=== PATIENT | female | born 1955 | race Caucasian/White ===

== ENCOUNTER 2016-12-09 08:26 | Inpatient (IN) | payer OTHER ==
[~2016-12-09] VITALS: Ht 162.6 cm; Wt 58.5 kg
[2016-12-09 09:11] LABS: BASOPHIL % 0.4 % (0-2); PLATELET COUNT 172 x10^3mcL (130-400)
[2016-12-09 09:12] LABS: RED CELL DISTRIBUTION WIDTH 14.8 % (11.5-14.5)
[2016-12-09 09:33] LABS: BILIRUBIN TOTAL 0.87 mg/dL (0.20-1.00); CALCIUM 9.6 mg/dL (8.5-10.1); CARBON DIOXIDE 20.4 mmol/L (21-32); CREATININE SERUM 1.4 mg/dL (0.6-1.0); POTASSIUM SERUM 3.4 mmol/L (3.5-5.1); T4(THYROXINE) 7.5 ug/dL (4.7-13.3); TOTAL PROTEIN, SERUM 7.6 g/dL (6.4-8.2)
[2016-12-09 10:48] LABS: microscopic required? YES; urine erythrocyte NEGATIVE (NEGATIVE)
[2016-12-09 11:20] LABS: AMPHETAMINE QUAL UR NONE DETECTED (NEG <=1000)
[2016-12-09] MEDS ORDERED: METFORMIN HYDR500 M1 (11:41)
[2016-12-09] MEDS ORDERED: JANUVIA100 M1 PO (11:41)
[2016-12-09 12:24] LABS: PHOSPHOROUS 3.9 mg/dL (2.5-4.9)
[2016-12-09 12:26] LABS: T3 TOTAL 0.73 ng/mL
[2016-12-09 12:29] LABS: CHOLESTEROL/HDL RATIO 2.9; MAGNESIUM 0.9 mg/dL (1.8-2.4)
[2016-12-09 12:48] VITALS: BP 139/63
[2016-12-09 12:58] LABS: FREE T4 1.28 ng/dL (0.76-1.46); T4(THYROXINE) 7.6 ug/dL (4.7-13.3)
[2016-12-09 13:01] VITALS: BP 139/63
[2016-12-09] MEDS ORDERED: GLUCOPHAGE1000 MG PO (16:02)
[2016-12-09] MEDS ORDERED: OXYBUTYNIN CHLOR5 MG PO (16:02)
[2016-12-09] MEDS ORDERED: TOPROL XL100 MG PO (16:04)
[2016-12-09] MEDS ORDERED: LEXAPRO10 MG PO (16:04)
[2016-12-09] MEDS ORDERED: COQ-10100 MG PO (16:05)
[2016-12-09] MEDS ORDERED: CALCIUM WITH V1 EACH PO (16:05)
[2016-12-09] MEDS ORDERED: AMARYL4 MG PO (16:05)
[2016-12-09] MEDS ORDERED: LIPI20 PO (16:05)
[2016-12-09 16:40] VITALS: BP 156/73
[2016-12-09 21:07] VITALS: BP 130/67
[2016-12-10 05:06] VITALS: BP 126/63
[2016-12-10 06:34] LABS: BASOPHIL % 0.1 % (0-2)
[2016-12-10 06:45] LABS: PLATELET COUNT 124 x10^3mcL (130-400); RED CELL DISTRIBUTION WIDTH 14.7 % (11.5-14.5)
[2016-12-10 06:59] LABS: CALCIUM 8.5 mg/dL (8.5-10.1); CARBON DIOXIDE 24.2 mmol/L (21-32); CHLORIDE SERUM 104 mmol/L (98-107); CREATININE SERUM 0.9 mg/dL (0.6-1.0); GFR1 > 60 mL/min; GLUCOSE SERUM 293 mg/dL (74-106); MAGNESIUM 1.7 mg/dL (1.8-2.4); PHOSPHOROUS 2.7 mg/dL (2.5-4.9); SODIUM SERUM 138 mmol/L (136-145)
[2016-12-10 08:15] VITALS: BP 115/59
[2016-12-10 09:27] VITALS: BP 115/59
[2016-12-10 13:14] VITALS: BP 125/67
[2016-12-10 16:56] LABS: CALCIUM 8.7 mg/dL (8.5-10.1); CARBON DIOXIDE 25.5 mmol/L (21-32); CHLORIDE SERUM 106 mmol/L (98-107); CREATININE SERUM 0.9 mg/dL (0.6-1.0); GFR1 > 60 mL/min; GLUCOSE SERUM 203 mg/dL (74-106); POTASSIUM SERUM 3.4 mmol/L (3.5-5.1); SODIUM SERUM 140 mmol/L (136-145)
[2016-12-10 17:17] VITALS: BP 125/82
[2016-12-10 22:06] VITALS: BP 141/68
[2016-12-11 05:37] LABS: ALBUMIN 3.5 g/dL (3.4-5.0); CALCIUM 9.1 mg/dL (8.5-10.1); CARBON DIOXIDE 22.1 mmol/L (21-32); CHLORIDE SERUM 100 mmol/L (98-107); CREATININE SERUM 0.9 mg/dL (0.6-1.0); GFR1 > 60 mL/min; GLUCOSE SERUM 326 mg/dL (74-106); MAGNESIUM 1.9 mg/dL (1.8-2.4); PHOSPHOROUS 2.8 mg/dL (2.5-4.9); POTASSIUM SERUM 3.7 mmol/L (3.5-5.1); SODIUM SERUM 135 mmol/L (136-145)
[2016-12-11 05:45] LABS: BASOPHIL % 0.2 % (0-2); RED CELL DISTRIBUTION WIDTH 14.3 % (11.5-14.5)
[2016-12-11 05:50] LABS: PLATELET COUNT 105 x10^3mcL (130-400)
[2016-12-11 05:55] VITALS: BP 186/79
[2016-12-11 09:22] VITALS: BP 184/92
[2016-12-11 16:31] VITALS: BP 107/70
[2016-12-11 21:06] VITALS: BP 106/58
[2016-12-12 04:45] VITALS: BP 120/60
[2016-12-12 06:18] LABS: BASOPHIL % 0.3 % (0-2); RED CELL DISTRIBUTION WIDTH 14.4 % (11.5-14.5)
[2016-12-12 06:26] LABS: PLATELET COUNT 113 x10^3mcL (130-400)
[2016-12-12 06:51] LABS: CALCIUM 8.6 mg/dL (8.5-10.1); CARBON DIOXIDE 24.9 mmol/L (21-32); CHLORIDE SERUM 104 mmol/L (98-107); CREATININE SERUM 0.8 mg/dL (0.6-1.0); GFR1 > 60 mL/min; GLUCOSE SERUM 209 mg/dL (74-106); MAGNESIUM 1.5 mg/dL (1.8-2.4); PHOSPHOROUS 3.1 mg/dL (2.5-4.9); SODIUM SERUM 137 mmol/L (136-145)
[2016-12-12] MEDS ORDERED: ZES10 PO (07:33)
[2016-12-12] MEDS ORDERED: BACTRIM DS1 TAB PO (07:39)
[2016-12-12] MEDS ORDERED: LAC PO (07:39)
[2016-12-12] MEDS ORDERED: METP PO (07:40)
[2016-12-12] MEDS ORDERED: COL100 PO (07:40)
[2016-12-12 08:54] VITALS: BP 117/66
[2016-12-12 11:59] VITALS: BP 131/63
[2016-12-12 12:00] VITALS: BP 131/63
== END 2016-12-12 12:52 | disposition home or self-care (01) | DRG 637 ==
LOC: ED 08:26 → DU 11:30 → MU 12-11 06:58
PROVIDERS: Emergency Medicine; ADMIT Family Medicine
DX: E11.65 Type 2 diabetes mellitus with hyperglycemia (principal); N17.0 Acute kidney failure with tubular necrosis; E87.1 Hypo-osmolality and hyponatremia; I42.9 Cardiomyopathy, unspecified; N39.0 Urinary tract infection, site not specified; I12.9 Hypertensive chronic kidney disease with stage 1 through stage 4 chronic kidney disease, or unspecified chronic kidney disease; N18.3 Chronic kidney disease, stage 3 (moderate); F32.9 Major depressive disorder, single episode, unspecified; E87.8 Other disorders of electrolyte and fluid balance, not elsewhere classified; E83.42 Hypomagnesemia; Z98.1 Arthrodesis status; Z68.20 Body mass index [BMI] 20.0-20.9, adult; K43.9 Ventral hernia without obstruction or gangrene; E02 Subclinical iodine-deficiency hypothyroidism; E86.0 Dehydration
CPT/HCPCS: 36600; 83880; 84439; J0690; J1815; J2405; J2765; J3475; J3480; J7030; J7042; Q0092

== ENCOUNTER 2017-01-25 14:07 | Inpatient (IN) | payer OTHER ==
[~2017-01-25] VITALS: Ht 162.6 cm; Wt 57.6 kg
[~2017-01-25 14:07] MED LIST: AMARYL4 MG PO; BACTRIM DS1 TAB PO; CALCIUM WITH V1 EACH PO; COL100 PO; COQ-10100 MG PO; GLUCOPHAGE1000 MG PO; JANUVIA100 M1 PO; LAC PO; LEXAPRO10 MG PO; LIPI20 PO; METFORMIN HYDR500 M1; METP PO; OXYBUTYNIN CHLOR5 MG PO; TOPROL XL100 MG PO; ZES10 PO
[2017-01-25 15:46] LABS: CALCIUM 9.7 mg/dL (8.5-10.1); CARBON DIOXIDE 25.1 mmol/L (21-32); CREATININE SERUM 1.1 mg/dL (0.6-1.0); POTASSIUM SERUM 4.1 mmol/L (3.5-5.1)
[2017-01-25 15:47] LABS: BASOPHIL % 0.4 % (0-2); PLATELET COUNT 144 x10^3mcL (130-400); RED CELL DISTRIBUTION WIDTH 14.5 % (11.5-14.5)
[2017-01-25] MEDS ORDERED: LINZESS290 MCG PO (19:04)
[2017-01-25 19:52] LABS: microscopic required? NO
[2017-01-25 20:01] LABS: UA SPECIFIC GRAVITY 1.015 (1.005-1.035); urine erythrocyte NEGATIVE (NEGATIVE)
[2017-01-25 20:13] LABS: AMPHETAMINE QUAL UR NONE DETECTED (NEG <=1000)
[2017-01-25 20:32] LABS: T3 TOTAL 0.94 ng/mL
[2017-01-25 20:44] LABS: FREE T4 1.06 ng/dL (0.76-1.46); FREE THYROXINE INDEX 2.3 ug/dL (1.4-4.5); T4(THYROXINE) 6.1 ug/dL (4.7-13.3)
[2017-01-25 20:46] VITALS: BP 124/67
[2017-01-25 20:49] VITALS: Ht 162.6 cm; Wt 57.6 kg
[2017-01-25 20:59] LABS: CHOLESTEROL/HDL RATIO 2.8; MAGNESIUM 0.8 mg/dL (1.8-2.4)
[2017-01-25 21:02] VITALS: BP 124/67
[2017-01-26 06:08] VITALS: BP 91/53
[2017-01-26 07:04] LABS: BASOPHIL % 0.6 % (0-2); CALCIUM 9.7 mg/dL (8.5-10.1); CARBON DIOXIDE 25.4 mmol/L (21-32); CREATININE SERUM 1.1 mg/dL (0.6-1.0); MAGNESIUM 2.5 mg/dL (1.8-2.4); PHOSPHOROUS 3.2 mg/dL (2.5-4.9); POTASSIUM SERUM 4.4 mmol/L (3.5-5.1)
[2017-01-26 07:09] LABS: PLATELET COUNT 113 x10^3mcL (130-400); RED CELL DISTRIBUTION WIDTH 14.8 % (11.5-14.5)
[2017-01-26 08:41] VITALS: BP 117/63
[2017-01-26 10:11] VITALS: BP 97/58
[2017-01-26 13:40] VITALS: BP 95/54
[2017-01-26 16:03] VITALS: BP 96/54
[2017-01-26 22:28] VITALS: BP 95/51
[2017-01-27 06:34] VITALS: BP 107/51
[2017-01-27 06:34] LABS: BASOPHIL % 0.5 % (0-2); RED CELL DISTRIBUTION WIDTH 14.4 % (11.5-14.5)
[2017-01-27 06:38] LABS: CALCIUM 9.1 mg/dL (8.5-10.1); CARBON DIOXIDE 23.6 mmol/L (21-32); POTASSIUM SERUM 4.7 mmol/L (3.5-5.1)
[2017-01-27 07:03] LABS: PLATELET COUNT 103 x10^3mcL (130-400)
[2017-01-27 08:00] VITALS: BP 102/58
[2017-01-27 08:41] VITALS: BP 115/62
[2017-01-27 14:15] VITALS: BP 115/62
[2017-01-27 17:48] VITALS: BP 122/56
[2017-01-27 20:54] VITALS: BP 107/54
[2017-01-28 05:43] VITALS: BP 121/59
[2017-01-28 06:17] LABS: BASOPHIL % 0.3 % (0-2); RED CELL DISTRIBUTION WIDTH 14.2 % (11.5-14.5)
[2017-01-28 06:19] LABS: PLATELET COUNT 110 x10^3mcL (130-400)
[2017-01-28 06:30] LABS: CALCIUM 9.7 mg/dL (8.5-10.1); CARBON DIOXIDE 22.5 mmol/L (21-32); CHLORIDE SERUM 108 mmol/L (98-107); CREATININE SERUM 0.9 mg/dL (0.6-1.0); GFR1 > 60 mL/min; GLUCOSE SERUM 124 mg/dL (74-106); MAGNESIUM 1.2 mg/dL (1.8-2.4); PHOSPHOROUS 4.2 mg/dL (2.5-4.9); POTASSIUM SERUM 4.5 mmol/L (3.5-5.1); SODIUM SERUM 140 mmol/L (136-145)
[2017-01-28 09:05] VITALS: BP 139/80
[2017-01-28 18:03] VITALS: BP 154/80
[2017-01-28 21:33] VITALS: BP 138/72
[2017-01-29 05:20] VITALS: BP 127/64
[2017-01-29 07:04] LABS: BASOPHIL % 0.5 % (0-2); RED CELL DISTRIBUTION WIDTH 14.4 % (11.5-14.5)
[2017-01-29 07:13] LABS: CALCIUM 9.7 mg/dL (8.5-10.1); CARBON DIOXIDE 21.2 mmol/L (21-32); CHLORIDE SERUM 107 mmol/L (98-107); CREATININE SERUM 0.8 mg/dL (0.6-1.0); GFR1 > 60 mL/min; GLUCOSE SERUM 128 mg/dL (74-106); MAGNESIUM 1.4 mg/dL (1.8-2.4); PLATELET COUNT 101 x10^3mcL (130-400); POTASSIUM SERUM 4.6 mmol/L (3.5-5.1); SODIUM SERUM 141 mmol/L (136-145)
[2017-01-29 10:25] VITALS: BP 134/77
[2017-01-29 17:46] VITALS: BP 125/68
[2017-01-29 21:43] VITALS: BP 109/61
[2017-01-30 06:43] VITALS: BP 107/65
[2017-01-30 07:40] LABS: CARBON DIOXIDE 20.5 mmol/L (21-32); CHLORIDE SERUM 108 mmol/L (98-107); CREATININE SERUM 0.8 mg/dL (0.6-1.0); GFR1 > 60 mL/min; GLUCOSE SERUM 203 mg/dL (74-106); MAGNESIUM 1.7 mg/dL (1.8-2.4); PHOSPHOROUS 4.3 mg/dL (2.5-4.9); POTASSIUM SERUM 4.4 mmol/L (3.5-5.1); SODIUM SERUM 140 mmol/L (136-145)
[2017-01-30 07:44] LABS: BASOPHIL % 0.4 % (0-2); RED CELL DISTRIBUTION WIDTH 14.2 % (11.5-14.5)
[2017-01-30 07:51] LABS: PLATELET COUNT 120 x10^3mcL (130-400)
[2017-01-30 10:40] VITALS: BP 102/55
[2017-01-30 14:59] VITALS: BP 81/41
[2017-01-30 15:05] LABS: BASOPHIL % 0.3 % (0-2); RED CELL DISTRIBUTION WIDTH 14.3 % (11.5-14.5)
[2017-01-30 15:07] LABS: PLATELET COUNT 121 x10^3mcL (130-400)
[2017-01-30 18:17] VITALS: BP 86/47
[2017-01-30 20:30] VITALS: BP 107/58
[2017-01-30 21:20] LABS: BASOPHIL % 0.4 % (0-2); RED CELL DISTRIBUTION WIDTH 13.9 % (11.5-14.5)
[2017-01-30 21:22] LABS: PLATELET COUNT 127 x10^3mcL (130-400)
[2017-01-31 05:35] VITALS: BP 104/56
[2017-01-31 06:02] LABS: BASOPHIL % 0.2 % (0-2); RED CELL DISTRIBUTION WIDTH 13.7 % (11.5-14.5)
[2017-01-31 06:11] LABS: CARBON DIOXIDE 21.2 mmol/L (21-32); MAGNESIUM 1.6 mg/dL (1.8-2.4); PHOSPHOROUS 3.6 mg/dL (2.5-4.9); POTASSIUM SERUM 4.3 mmol/L (3.5-5.1)
[2017-01-31 06:44] LABS: PLATELET COUNT 106 x10^3mcL (130-400)
[2017-01-31 11:06] VITALS: BP 89/54
[2017-01-31 15:18] VITALS: BP 89/54
== END 2017-01-31 17:19 | DRG 480 ==
LOC: ED 14:07 → MU 19:23 → DU 19:23 → MU 01-26 23:53
PROVIDERS: Emergency Medicine Emergency Medical Services; Neuromusculoskeletal Medicine, Sports Medicine; ADMIT Family Medicine
PROC: 0QS604Z Reposition Right Upper Femur with Internal Fixation Device, Open Approach (ICD-10-PCS; principal; 2017-01-29 10:30)
DX: S72.144A Nondisplaced intertrochanteric fracture of right femur, initial encounter for closed fracture (principal); N17.0 Acute kidney failure with tubular necrosis; E87.1 Hypo-osmolality and hyponatremia; D68.69 Other thrombophilia; E11.65 Type 2 diabetes mellitus with hyperglycemia; E83.42 Hypomagnesemia; K43.9 Ventral hernia without obstruction or gangrene; D64.9 Anemia, unspecified; W18.39XA Other fall on same level, initial encounter; Y93.89 Activity, other specified; Y92.018 Other place in single-family (private) house as the place of occurrence of the external cause; Y99.8 Other external cause status; Z88.8 Allergy status to other drugs, medicaments and biological substances; I10 Essential (primary) hypertension; S01.01XA Laceration without foreign body of scalp, initial encounter; E78.1 Pure hyperglyceridemia; Z82.49 Family history of ischemic heart disease and other diseases of the circulatory system; Z80.9 Family history of malignant neoplasm, unspecified; Z83.3 Family history of diabetes mellitus; Z90.710 Acquired absence of both cervix and uterus
CPT/HCPCS: 83880; 84439; 97110-GP; 97116-GP; 97530-GP; C1713; J0690; J1644; J1885; J2001; J2250; J2270; J2405; J2543; J2704; J3010; J3370; J3475; J3490; J7030; J7050; P9016; Q0092